=== PATIENT | male | born 1965 | race Two or more races ===

== ENCOUNTER 2021-01-26 14:11 | Inpatient (IN) | payer OTHER, MEDICAID ==
[~2021-01-26] VITALS: Ht 170.2 cm; Wt 86.1 kg
[2021-01-26 15:37] LABS: Basophils # (auto) 0 10 ^3/uL (0-0.2); Basophils % (auto) 0.2 % (0.0-2.0); Eosinophils # (auto) 0 10 ^3/uL (0-0.8); Eosinophils % (auto) 0.3 % (0.0-7.0); Lymphocytes # (auto) 0.7 10 ^3/uL (0.4-5.4); Lymphocytes % (auto) 5.9 % (10.0-50.0); Mean Corpuscular Hemoglobin 29.4 pg (28.0-32.0); Mean Corpuscular Hgb Conc. 32.6 g/dL (32.0-36.0); Mean Corpuscular Volume 90.3 fL (80.0-100.0); Monocytes # (auto) 0.5 10 ^3/uL (0-1.3); Monocytes % (auto) 3.9 % (0.0-12.0); Neutrophils # (auto) 11.2 10 ^3/uL (1.6-8.6); Neutrophils % (auto) 89.7 % (37.0-80.0); Nucleated Red Blood Cells % 0.1 %; Red Blood Cells 5.43 10^6/uL (4.5-5.90); Red Cell Distribution Width 13.7 % (11.8-14.3); White Blood Cell 12.5 10^3/uL (4.4-10.8)
[2021-01-26 15:58] LABS: Albumin 2.2 g/dL (3.4-5.0); Calcium 8.4 mg/dL (8.5-10.1); Magnesium 2.6 mg/dL (1.6-2.6); Potassium 3.5 mmol/L (3.5-5.1)
[2021-01-26 16:01] LABS: BUN/Creatinine Ratio 17.5; Bilirubin, Total 0.7 mg/dL (0.2-1.0); Total Protein 8.2 g/dL (6.4-8.2)
[2021-01-26] MEDS ORDERED: NITROGLYCERIN 0.4 MG SL TAB SL PRN ×2 (18:00→19:30)
[2021-01-26] MEDS ORDERED: AZITHROMYCIN 250 MG TAB PO ONE (18:00)
[2021-01-26] MEDS ORDERED: cefTRIAXone 1GM/50ML D5W 50 ML IV ONE (18:00)
[2021-01-26] MEDS ORDERED: MORPHINE SULFATE INJECTION 2 MG/ML SYRG IV PRN ×3 (18:00→19:30)
[2021-01-26] MEDS ORDERED: REMDESIVIR PER PHARMACY 0 ML IV SCH (19:30)
[2021-01-26] MEDS ORDERED: DOCUSATE SOD 100 MG CAP PO PRN (19:30)
[2021-01-26] MEDS ORDERED: METOCLOPRAMIDE HCL 5MG/ml INJ 2ml VIAL IV PRN (19:30)
[2021-01-26] MEDS ORDERED: FAMOTIDINE (10MG/ML) 2ML VL IV ONE (19:30)
[2021-01-26] MEDS ORDERED: LORazepam 0.5 MG TAB PO PRN (19:30)
[2021-01-26] MEDS ORDERED: ALUM & MAG HYDROX-SIMETH LIQ(MAALOX) 30 ML PO PRN (19:30)
[2021-01-26] MEDS ORDERED: HYDROcodone-ACET 5/325MG TAB PO PRN (19:30)
[2021-01-26] MEDS ORDERED: ALBUMIN 25% 100 ML IV ONE (19:30)
[2021-01-26 21:00] VITALS: BP 121/62
[2021-01-26 22:00] VITALS: BP 121/62
[2021-01-26] MEDS: FAMOTIDINE (10MG/ML) 2ML VL IV SCH (22:19)
[2021-01-26] MEDS: POTASSIUM CHL 20 Meq TABLET PO SCH (22:19)
[2021-01-26] MEDS: ENOXAPARIN SOD 40 MG/0.4 ML SYRINGE SC SCH (22:20)
[2021-01-26] MEDS: ATORVASTATIN 20 MG TAB PO SCH (22:20)
[2021-01-26] MEDS: DOXYCYCLINE 100MG/250ML 250 ML IV SCH (23:24)
[2021-01-27 00:33] LABS: Basophils # (auto) 0.1 10 ^3/uL (0-0.2); Basophils % (auto) 0.6 % (0.0-2.0); Eosinophils # (auto) 0 10 ^3/uL (0-0.8); Eosinophils % (auto) 0.3 % (0.0-7.0); Hematocrit 40.6 % (41.0-53.0); Hemoglobin 13.8 g/dL (13.5-17.5); Lymphocytes # (auto) 0.9 10 ^3/uL (0.4-5.4); Mean Corpuscular Hemoglobin 30.4 pg (28.0-32.0); Mean Corpuscular Hgb Conc. 34.1 g/dL (32.0-36.0); Mean Corpuscular Volume 89.2 fL (80.0-100.0); Monocytes # (auto) 0.4 10 ^3/uL (0-1.3); Monocytes % (auto) 3.3 % (0.0-12.0); Neutrophils # (auto) 9.3 10 ^3/uL (1.6-8.6); Neutrophils % (auto) 87.8 % (37.0-80.0); Nucleated Red Blood Cells % 0.1 %; Red Blood Cells 4.56 10^6/uL (4.5-5.90); Red Cell Distribution Width 13.5 % (11.8-14.3); White Blood Cell 10.7 10^3/uL (4.4-10.8)
[2021-01-27 00:55] LABS: Alanine Aminotransferase 42 U/L (16-61); Albumin 2.5 g/dL (3.4-5.0); Anion Gap 12 (5-15); Aspartate Aminotransferase 42 U/L (15-37); BUN/Creatinine Ratio 28.3; Blood Urea Nitrogen 15 mg/dL (7-18); Calcium 8.2 mg/dL (8.5-10.1); Carbon Dioxide 23 mmol/L (21-32); Chloride 106 mmol/L (98-107); Cholesterol 136 mg/dL (< 200); GFR African American 207 mL/min; GFR Non-African American 171 mL/min; Glucose 96 mg/dL (74-106); Magnesium 2.5 mg/dL (1.6-2.6); Potassium 3.5 mmol/L (3.5-5.1); Sodium 141 mmol/L (136-145)
[2021-01-27 01:03] LABS: Alkaline Phosphatase 57 U/L (45-117); Bilirubin, Total 0.7 mg/dL (0.2-1.0); HDL Cholesterol 28 mg/dL (40-59); LDL Cholesterol 88 mg/dL (< 100); Total Protein 7.3 g/dL (6.4-8.2); Triglycerides 125 mg/dL (< 150)
[2021-01-27 01:09] LABS: CRP High Sensitivity > 19.0 mg/dL (< 0.3)
[2021-01-27 01:11] LABS: Thyroid Stimulating Hormone 0.65 uIU/mL (0.358-3.74)
[2021-01-27] MEDS ORDERED: ASCO500T11 PO (02:51)
[2021-01-27] MEDS ORDERED: MULT1CHW PO (02:51)
[2021-01-27] MEDS ORDERED: ZINC220C8 PO (02:51)
[2021-01-27] MEDS: ALBUMIN 25% 100 ML IV SCH ×3 (04:07→19:27)
[2021-01-27 05:00] VITALS: BP 129/71
[2021-01-27] MEDS: FUROSEMIDE 20 MG/2 ML VIAL IV SCH ×2 (05:39→18:23)
[2021-01-27 06:46] LABS: Basophils # (auto) 0 10 ^3/uL (0-0.2); Basophils % (auto) 0.3 % (0.0-2.0); Eosinophils # (auto) 0.1 10 ^3/uL (0-0.8); Eosinophils % (auto) 0.8 % (0.0-7.0); Hematocrit 41.1 % (41.0-53.0); Hemoglobin 14.1 g/dL (13.5-17.5); Lymphocytes # (auto) 0.8 10 ^3/uL (0.4-5.4); Lymphocytes % (auto) 7.3 % (10.0-50.0); Mean Corpuscular Hemoglobin 30.5 pg (28.0-32.0); Mean Corpuscular Hgb Conc. 34.2 g/dL (32.0-36.0); Mean Corpuscular Volume 89.2 fL (80.0-100.0); Monocytes # (auto) 0.3 10 ^3/uL (0-1.3); Monocytes % (auto) 3.1 % (0.0-12.0); Neutrophils # (auto) 9.3 10 ^3/uL (1.6-8.6); Neutrophils % (auto) 88.5 % (37.0-80.0); Nucleated Red Blood Cells % 0.1 %; Red Blood Cells 4.61 10^6/uL (4.5-5.90); Red Cell Distribution Width 13.5 % (11.8-14.3); White Blood Cell 10.5 10^3/uL (4.4-10.8)
[2021-01-27 07:01] LABS: INR 1.1 (0.9-1.15)
[2021-01-27 07:06] LABS: Albumin 2.8 g/dL (3.4-5.0); Calcium 8.6 mg/dL (8.5-10.1); Magnesium 3.4 mg/dL (1.6-2.6); Potassium 3.7 mmol/L (3.5-5.1); Uric Acid 3.9 mg/dL (3.5-7.2)
[2021-01-27 07:11] LABS: Bilirubin, Total 0.8 mg/dL (0.2-1.0); Phosphorus 2.5 mg/dL (2.5-4.90); Total Protein 7.8 g/dL (6.4-8.2)
[2021-01-27 07:54] LABS: Urine Bacteria NONE SEEN /hpf (None Seen); Urine Blood Negative /uL (Negative); Urine Mucus FEW (None Seen); Urine Specific Gravity 1.033 (1.001-1.035); Urine WBC 1 /hpf (0 - 3)
[2021-01-27 07:57] LABS: Amphetamine Screen, Urine NEGATIVE (NEGATIVE); Barbiturate Scree,Urine NEGATIVE (NEGATIVE); Benzodiazephine Screen, Urine NEGATIVE (NEGATIVE); Cannabinoid Screen, Urine NEGATIVE (NEGATIVE); Cocaine Screen, Urine NEGATIVE (NEGATIVE); Opiate Scree,Urine NEGATIVE (NEGATIVE); Phencyclidine Screen, Urine NEGATIVE (NEGATIVE)
[2021-01-27] MEDS: DexAMETHasone SOD PHOS 10MG/1ML VIAL INJ IV SCH (08:26)
[2021-01-27] MEDS: FAMOTIDINE (10MG/ML) 2ML VL IV SCH ×2 (08:26→21:39)
[2021-01-27] MEDS: CHOLECALCIFEROL (VITD3) 2,000 UNIT CAP/TAB PO SCH (08:27)
[2021-01-27] MEDS: DOXYCYCLINE 100MG/250ML 250 ML IV SCH ×2 (08:27→21:39)
[2021-01-27] MEDS: POTASSIUM CHL 20 Meq TABLET PO SCH ×2 (08:27→21:39)
[2021-01-27] MEDS: ASCORBIC ACID 1,000 MG TAB PO SCH (08:27)
[2021-01-27] MEDS: ASPirin 81 mg TAB PO SCH (08:27)
[2021-01-27] MEDS: IVERMECTIN 3 MG TAB PO SCH (08:27)
[2021-01-27] MEDS: ENOXAPARIN SOD 40 MG/0.4 ML SYRINGE SC SCH ×2 (08:28→21:40)
[2021-01-27] MEDS: ZINC SULFATE 220mg CAP or TAB PO SCH (08:36)
[2021-01-27 09:00] VITALS: BP 131/67
[2021-01-27] MEDS ORDERED: REMDESIVIR 200 MG in NS 210ml LOADING DOSE ADULT IV ONE (09:00)
[2021-01-27] MEDS: BUDESONIDE (INHALATION) 180 MCG IH IN SCH ×2 (10:00→23:07)
[2021-01-27] MEDS ORDERED: ACETAMINOPHEN 325 MG TAB PO PRN (10:30)
[2021-01-27 11:42] LABS: BUN/Creatinine Ratio 21.4
[2021-01-27 13:00] VITALS: BP 122/62
[2021-01-27 17:00] VITALS: BP 133/69
[2021-01-27] MEDS: ATORVASTATIN 20 MG TAB PO SCH (21:39)
[2021-01-27 22:00] VITALS: BP 124/81
[2021-01-27] MEDS ORDERED: TOCILIZUMAB 400 MG in SODIUM CHL 0.9% 80 ML IV SCH (22:00)
[2021-01-27] MEDS: ALBUTEROL SULF HFA 90MCG INH 200DOSE IN PRN (23:07)
[2021-01-28 05:00] VITALS: BP 121/81
[2021-01-28] MEDS: FUROSEMIDE 20 MG/2 ML VIAL IV SCH (05:48)
[2021-01-28] MEDS: ALBUTEROL SULF HFA 90MCG INH 200DOSE IN PRN ×2 (06:13→20:18)
[2021-01-28] MEDS: BUDESONIDE (INHALATION) 180 MCG IH IN SCH ×2 (06:13→19:07)
[2021-01-28 06:56] LABS: Basophils # (auto) 0 10 ^3/uL (0-0.2); Basophils % (auto) 0.1 % (0.0-2.0); Eosinophils # (auto) 0 10 ^3/uL (0-0.8); Eosinophils % (auto) 0.1 % (0.0-7.0); Hematocrit 42.5 % (41.0-53.0); Hemoglobin 14.4 g/dL (13.5-17.5); Lymphocytes # (auto) 0.9 10 ^3/uL (0.4-5.4); Lymphocytes % (auto) 5.6 % (10.0-50.0); Mean Corpuscular Hemoglobin 30.1 pg (28.0-32.0); Mean Corpuscular Hgb Conc. 33.9 g/dL (32.0-36.0); Mean Corpuscular Volume 88.7 fL (80.0-100.0); Monocytes # (auto) 0.5 10 ^3/uL (0-1.3); Monocytes % (auto) 3.3 % (0.0-12.0); Neutrophils # (auto) 14.6 10 ^3/uL (1.6-8.6); Neutrophils % (auto) 90.9 % (37.0-80.0); Nucleated Red Blood Cells % 0.1 %; Red Blood Cells 4.79 10^6/uL (4.5-5.90); Red Cell Distribution Width 13.3 % (11.8-14.3)
[2021-01-28 06:59] LABS: INR 1.13 (0.9-1.15); Partial Thromboplastin Time 33.6 sec (23.6-33.0)
[2021-01-28 07:17] LABS: Albumin 3.3 g/dL (3.4-5.0); Bilirubin, Total 0.7 mg/dL (0.2-1.0); Calcium 9.1 mg/dL (8.5-10.1); Magnesium 2.4 mg/dL (1.6-2.6); Phosphorus 2.8 mg/dL (2.5-4.90); Total Protein 7.4 g/dL (6.4-8.2)
[2021-01-28 08:37] VITALS: BP 131/66
[2021-01-28] MEDS: DOXYCYCLINE 100MG/250ML 250 ML IV SCH (09:13)
[2021-01-28] MEDS: FAMOTIDINE (10MG/ML) 2ML VL IV SCH ×2 (09:13→21:39)
[2021-01-28] MEDS: ZINC SULFATE 220mg CAP or TAB PO SCH (09:13)
[2021-01-28] MEDS: ASPirin 81 mg TAB PO SCH (09:13)
[2021-01-28] MEDS: DexAMETHasone SOD PHOS 10MG/1ML VIAL INJ IV SCH (09:13)
[2021-01-28] MEDS: CHOLECALCIFEROL (VITD3) 2,000 UNIT CAP/TAB PO SCH (09:14)
[2021-01-28] MEDS: ENOXAPARIN SOD 40 MG/0.4 ML SYRINGE SC SCH ×2 (09:14→21:39)
[2021-01-28] MEDS: POTASSIUM CHL 20 Meq TABLET PO SCH (09:14)
[2021-01-28] MEDS: ASCORBIC ACID 1,000 MG TAB PO SCH (09:14)
[2021-01-28] MEDS: IVERMECTIN 3 MG TAB PO SCH (09:14)
[2021-01-28] MEDS: AZITHROMYCIN 500MG/ 250ML 250 ML IV SCH (11:47)
[2021-01-28 13:00] VITALS: BP 128/69
[2021-01-28] MEDS: ERGOCALCIFEROL 50,000 UNIT(1.25MG) CAP PO SCH (13:36)
[2021-01-28] MEDS: REMDESIVIR 100mg 100 MG in SODIUM CHL 0.9% 230 ML IV SCH (14:47)
[2021-01-28 17:00] VITALS: BP 132/71
[2021-01-28 20:55] VITALS: BP 140/70
[2021-01-28] MEDS: ATORVASTATIN 20 MG TAB PO SCH (21:39)
[2021-01-29] VITALS (32 sets, daily range): BP systolic 102–173; BP diastolic 55–88
[2021-01-29] MEDS: ALBUTEROL SULF HFA 90MCG INH 200DOSE IN PRN ×3 (06:54→19:18)
[2021-01-29] MEDS: BUDESONIDE (INHALATION) 180 MCG IH IN SCH ×2 (06:54→19:17)
[2021-01-29] MEDS: ASCORBIC ACID 1,000 MG TAB PO SCH (10:00)
[2021-01-29] MEDS: CHOLECALCIFEROL (VITD3) 2,000 UNIT CAP/TAB PO SCH (10:00)
[2021-01-29] MEDS: ASPirin 81 mg TAB PO SCH (10:00)
[2021-01-29] MEDS: POTASSIUM CHL 20 Meq TABLET PO SCH (10:00)
[2021-01-29] MEDS: IVERMECTIN 3 MG TAB PO SCH (10:00)
[2021-01-29] MEDS: ZINC SULFATE 220mg CAP or TAB PO SCH (10:00)
[2021-01-29] MEDS ORDERED: DexAMETHasone SOD PHOS 10MG/1ML VIAL INJ IM ONE (10:30)
[2021-01-29] MEDS ORDERED: fentaNYL Drip 2500mCg/250mlNS 0 ML IV ONE (10:34)
[2021-01-29] MEDS ORDERED: MIDAZOLAM DRIP 50 mg/50mL 0 ML IV ONE (10:35)
[2021-01-29] MEDS: cefTRIAXone 1GM/50ML D5W 50 ML IV SCH (11:59)
[2021-01-29] MEDS: FAMOTIDINE (10MG/ML) 2ML VL IV SCH ×2 (11:59→23:12)
[2021-01-29] MEDS: ENOXAPARIN SOD 40 MG/0.4 ML SYRINGE SC SCH ×2 (12:00→23:12)
[2021-01-29] MEDS: FUROSEMIDE 20 MG/2 ML VIAL IV SCH (12:00)
[2021-01-29] MEDS ORDERED: DexAMETHasone SOD PHOS 10MG/1ML VIAL INJ IV ONE (12:30)
[2021-01-29] MEDS: AZITHROMYCIN 500MG/ 250ML 250 ML IV SCH (13:15)
[2021-01-29] MEDS: REMDESIVIR 100mg 100 MG in SODIUM CHL 0.9% 230 ML IV SCH (15:02)
[2021-01-29 15:51] LABS: Albumin 3.2 g/dL (3.4-5.0); Calcium 8.9 mg/dL (8.5-10.1); Potassium 3.8 mmol/L (3.5-5.1)
[2021-01-29 15:54] LABS: BUN/Creatinine Ratio 32.8; Bilirubin, Total 0.6 mg/dL (0.2-1.0); Total Protein 7.7 g/dL (6.4-8.2)
[2021-01-29] MEDS: ATORVASTATIN 20 MG TAB PO SCH (22:00)
[2021-01-30] VITALS (47 sets, daily range): BP systolic 99–127; BP diastolic 46–73
[2021-01-30 04:20] LABS: Basophils # (auto) 0 10 ^3/uL (0-0.2); Basophils % (auto) 0.1 % (0.0-2.0); Eosinophils # (auto) 0 10 ^3/uL (0-0.8); Monocytes # (auto) 0.5 10 ^3/uL (0-1.3)
[2021-01-30 04:22] LABS: Hematocrit 42.6 % (41.0-53.0); Hemoglobin 14.5 g/dL (13.5-17.5); Lymphocytes % (auto) 7.7 % (10.0-50.0); Mean Corpuscular Volume 88.2 fL (80.0-100.0); Monocytes % (auto) 3.8 % (0.0-12.0); Neutrophils % (auto) 88.4 % (37.0-80.0); Red Blood Cells 4.82 10^6/uL (4.5-5.90); Red Cell Distribution Width 13.4 % (11.8-14.3); White Blood Cell 13.5 10^3/uL (4.4-10.8)
[2021-01-30 04:53] LABS: Albumin 2.8 g/dL (3.4-5.0); Calcium 8.4 mg/dL (8.5-10.1); Potassium 3.9 mmol/L (3.5-5.1)
[2021-01-30 05:01] LABS: BUN/Creatinine Ratio 32.9; Bilirubin, Total 0.5 mg/dL (0.2-1.0); CRP High Sensitivity 10.3 mg/dL (< 0.3); Total Protein 7.6 g/dL (6.4-8.2)
[2021-01-30] MEDS: BUDESONIDE (INHALATION) 180 MCG IH IN SCH ×2 (07:29→18:12)
[2021-01-30] MEDS: cefTRIAXone 1GM/50ML D5W 50 ML IV SCH (09:00)
[2021-01-30] MEDS: FUROSEMIDE 20 MG/2 ML VIAL IV SCH (10:34)
[2021-01-30] MEDS: FAMOTIDINE (10MG/ML) 2ML VL IV SCH ×2 (10:34→20:38)
[2021-01-30] MEDS: DexAMETHasone SOD PHOS 10MG/1ML VIAL INJ IV SCH (10:34)
[2021-01-30] MEDS: AZITHROMYCIN 500MG/ 250ML 250 ML IV SCH (10:35)
[2021-01-30] MEDS: ZINC SULFATE 220mg CAP or TAB PO SCH (10:35)
[2021-01-30] MEDS: ASPirin 81 mg TAB PO SCH (10:35)
[2021-01-30] MEDS: POTASSIUM CHL 20 Meq TABLET PO SCH (10:39)
[2021-01-30] MEDS: CHOLECALCIFEROL (VITD3) 2,000 UNIT CAP/TAB PO SCH (10:42)
[2021-01-30] MEDS: ASCORBIC ACID 1,000 MG TAB PO SCH (10:42)
[2021-01-30] MEDS: IVERMECTIN 3 MG TAB PO SCH (10:42)
[2021-01-30] MEDS: ENOXAPARIN SOD 40 MG/0.4 ML SYRINGE SC SCH ×2 (10:43→20:38)
[2021-01-30] MEDS: D5W 5% 1,000 ML IV SCH (12:53)
[2021-01-30] MEDS: REMDESIVIR 100mg 100 MG in SODIUM CHL 0.9% 230 ML IV SCH (15:00)
[2021-01-30] MEDS: ALBUTEROL SULF HFA 90MCG INH 200DOSE IN PRN (18:12)
[2021-01-30] MEDS: ATORVASTATIN 20 MG TAB PO SCH (20:38)
[2021-01-31] VITALS (27 sets, daily range): BP systolic 88–114; BP diastolic 43–60
[2021-01-31 04:16] LABS: Basophils # (auto) 0.1 10 ^3/uL (0-0.2); Basophils % (auto) 0.4 % (0.0-2.0); Eosinophils # (auto) 0 10 ^3/uL (0-0.8); Eosinophils % (auto) 0.2 % (0.0-7.0); Mean Corpuscular Hemoglobin 29.5 pg (28.0-32.0); Monocytes # (auto) 0.6 10 ^3/uL (0-1.3)
[2021-01-31 04:20] LABS: Hematocrit 44.1 % (41.0-53.0); Hemoglobin 14.7 g/dL (13.5-17.5); Lymphocytes # (auto) 1.5 10 ^3/uL (0.4-5.4); Lymphocytes % (auto) 9.7 % (10.0-50.0); Mean Corpuscular Hgb Conc. 33.2 g/dL (32.0-36.0); Mean Corpuscular Volume 88.9 fL (80.0-100.0); Monocytes % (auto) 3.9 % (0.0-12.0); Neutrophils # (auto) 13.6 10 ^3/uL (1.6-8.6); Neutrophils % (auto) 85.8 % (37.0-80.0); Red Blood Cells 4.97 10^6/uL (4.5-5.90); Red Cell Distribution Width 13.3 % (11.8-14.3); White Blood Cell 15.8 10^3/uL (4.4-10.8)
[2021-01-31 04:37] LABS: Albumin 2.8 g/dL (3.4-5.0); Calcium 8.8 mg/dL (8.5-10.1); Potassium 4.8 mmol/L (3.5-5.1)
[2021-01-31 04:40] LABS: BUN/Creatinine Ratio 36.8
[2021-01-31 04:48] LABS: Bilirubin, Total 0.5 mg/dL (0.2-1.0); Total Protein 6.7 g/dL (6.4-8.2)
[2021-01-31] MEDS: ALBUTEROL SULF HFA 90MCG INH 200DOSE IN PRN ×2 (06:13→22:18)
[2021-01-31] MEDS: BUDESONIDE (INHALATION) 180 MCG IH IN SCH ×2 (06:13→22:18)
[2021-01-31] MEDS: D5W 5% 1,000 ML IV SCH (09:32)
[2021-01-31] MEDS: cefTRIAXone 1GM/50ML D5W 50 ML IV SCH (09:32)
[2021-01-31] MEDS: AZITHROMYCIN 500MG/ 250ML 250 ML IV SCH (09:33)
[2021-01-31] MEDS: FUROSEMIDE 20 MG/2 ML VIAL IV SCH (09:33)
[2021-01-31] MEDS: DexAMETHasone SOD PHOS 10MG/1ML VIAL INJ IV SCH (09:33)
[2021-01-31] MEDS: FAMOTIDINE (10MG/ML) 2ML VL IV SCH ×2 (09:33→21:10)
[2021-01-31] MEDS: ASPirin 81 mg TAB PO SCH (09:33)
[2021-01-31] MEDS: POTASSIUM CHL 20 Meq TABLET PO SCH (09:34)
[2021-01-31] MEDS: CHOLECALCIFEROL (VITD3) 2,000 UNIT CAP/TAB PO SCH (09:34)
[2021-01-31] MEDS: IVERMECTIN 3 MG TAB PO SCH (09:34)
[2021-01-31] MEDS: ENOXAPARIN SOD 40 MG/0.4 ML SYRINGE SC SCH ×2 (09:34→21:16)
[2021-01-31] MEDS: ASCORBIC ACID 1,000 MG TAB PO SCH (09:34)
[2021-01-31] MEDS: ZINC SULFATE 220mg CAP or TAB PO SCH (09:34)
[2021-01-31] MEDS: REMDESIVIR 100mg 100 MG in SODIUM CHL 0.9% 230 ML IV SCH (15:00)
[2021-01-31] MEDS: ATORVASTATIN 20 MG TAB PO SCH (21:10)
[2021-02-01] VITALS (29 sets, daily range): BP systolic 83–117; BP diastolic 45–68
[2021-02-01 04:37] LABS: Hemoglobin 14.8 g/dL (13.5-17.5); Red Cell Distribution Width 13.7 % (11.8-14.3)
[2021-02-01 04:41] LABS: Hematocrit 44.9 % (41.0-53.0); Mean Corpuscular Hemoglobin 29.4 pg (28.0-32.0); Mean Corpuscular Hgb Conc. 32.9 g/dL (32.0-36.0); Mean Corpuscular Volume 89.5 fL (80.0-100.0); Red Blood Cells 5.02 10^6/uL (4.5-5.90); White Blood Cell 18.2 10^3/uL (4.4-10.8)
[2021-02-01 04:50] LABS: BUN/Creatinine Ratio 41.4; Basophils % (manual) 0 (0.0-2.0); Blast Cells 0; Calcium 8.6 mg/dL (8.5-10.1); Eosinophils % (manual) 0 (0-7); Metamyelocytes % 0; Myelocytes % 0; Potassium 4.8 mmol/L (3.5-5.1); Promyelocytes % 0; Reactive Lymphocytes 0
[2021-02-01] MEDS: ALBUTEROL SULF HFA 90MCG INH 200DOSE IN PRN ×2 (05:56→20:59)
[2021-02-01] MEDS: BUDESONIDE (INHALATION) 180 MCG IH IN SCH ×2 (05:56→20:59)
[2021-02-01 06:06] LABS: Band Neutrophils % (manual) 8; Lymphocytes % (manual) 11 (10.0-50.0); Monocytes % (manual) 4 (0-12)
[2021-02-01] MEDS: CHOLECALCIFEROL (VITD3) 2,000 UNIT CAP/TAB PO SCH (10:00)
[2021-02-01] MEDS: cefTRIAXone 1GM/50ML D5W 50 ML IV SCH (10:06)
[2021-02-01] MEDS: DexAMETHasone SOD PHOS 10MG/1ML VIAL INJ IV SCH (10:07)
[2021-02-01] MEDS: FAMOTIDINE (10MG/ML) 2ML VL IV SCH ×2 (10:07→21:10)
[2021-02-01] MEDS: ASPirin 81 mg TAB PO SCH (10:07)
[2021-02-01] MEDS: FUROSEMIDE 20 MG/2 ML VIAL IV SCH (10:07)
[2021-02-01] MEDS: AZITHROMYCIN 500MG/ 250ML 250 ML IV SCH (10:07)
[2021-02-01] MEDS: ASCORBIC ACID 1,000 MG TAB PO SCH (10:08)
[2021-02-01] MEDS: ZINC SULFATE 220mg CAP or TAB PO SCH (10:08)
[2021-02-01] MEDS: ENOXAPARIN SOD 40 MG/0.4 ML SYRINGE SC SCH ×2 (10:08→21:10)
[2021-02-01] MEDS: POTASSIUM CHL 20 Meq TABLET PO SCH (10:08)
[2021-02-01] MEDS: D5W 5% 1,000 ML IV SCH (10:09)
[2021-02-01] MEDS: ATORVASTATIN 20 MG TAB PO SCH (21:10)
[2021-02-02] VITALS (14 sets, daily range): BP systolic 95–111; BP diastolic 47–63
[2021-02-02 04:36] LABS: Basophils # (auto) 0.1 10 ^3/uL (0-0.2); Eosinophils # (auto) 0 10 ^3/uL (0-0.8); Eosinophils % (auto) 0.1 % (0.0-7.0)
[2021-02-02 04:39] LABS: Basophils % (auto) 0.4 % (0.0-2.0); Hematocrit 45.1 % (41.0-53.0); Hemoglobin 15.1 g/dL (13.5-17.5); Lymphocytes # (auto) 1.7 10 ^3/uL (0.4-5.4); Lymphocytes % (auto) 8.3 % (10.0-50.0); Mean Corpuscular Hemoglobin 29.6 pg (28.0-32.0); Mean Corpuscular Hgb Conc. 33.5 g/dL (32.0-36.0); Mean Corpuscular Volume 88.3 fL (80.0-100.0); Monocytes # (auto) 0.9 10 ^3/uL (0-1.3); Monocytes % (auto) 4.3 % (0.0-12.0); Neutrophils % (auto) 86.9 % (37.0-80.0); Red Blood Cells 5.11 10^6/uL (4.5-5.90); Red Cell Distribution Width 13.3 % (11.8-14.3); White Blood Cell 20.8 10^3/uL (4.4-10.8)
[2021-02-02 05:00] LABS: BUN/Creatinine Ratio 31.9; Calcium 8.6 mg/dL (8.5-10.1); Potassium 4.8 mmol/L (3.5-5.1)
[2021-02-02] MEDS: D5W 5% 1,000 ML IV SCH ×2 (06:12→20:30)
[2021-02-02] MEDS: BUDESONIDE (INHALATION) 180 MCG IH IN SCH ×2 (08:53→21:10)
[2021-02-02] MEDS: ALBUTEROL SULF HFA 90MCG INH 200DOSE IN PRN (08:54)
[2021-02-02] MEDS: cefTRIAXone 1GM/50ML D5W 50 ML IV SCH (09:06)
[2021-02-02] MEDS: FAMOTIDINE (10MG/ML) 2ML VL IV SCH ×2 (10:04→20:53)
[2021-02-02] MEDS: ENOXAPARIN SOD 40 MG/0.4 ML SYRINGE SC SCH ×2 (10:04→20:54)
[2021-02-02] MEDS: FUROSEMIDE 20 MG/2 ML VIAL IV SCH (10:04)
[2021-02-02] MEDS: DexAMETHasone SOD PHOS 10MG/1ML VIAL INJ IV SCH (10:04)
[2021-02-02] MEDS: ASPirin 81 mg TAB PO SCH (10:05)
[2021-02-02] MEDS: CHOLECALCIFEROL (VITD3) 2,000 UNIT CAP/TAB PO SCH (10:05)
[2021-02-02] MEDS: ZINC SULFATE 220mg CAP or TAB PO SCH (10:05)
[2021-02-02] MEDS: POTASSIUM CHL 20 Meq TABLET PO SCH (10:05)
[2021-02-02] MEDS: AZITHROMYCIN 500MG/ 250ML 250 ML IV SCH (10:06)
[2021-02-02] MEDS: ASCORBIC ACID 1,000 MG TAB PO SCH (10:10)
[2021-02-02] MEDS: ATORVASTATIN 20 MG TAB PO SCH (20:54)
[2021-02-03] MEDS: ALBUTEROL SULF HFA 90MCG INH 200DOSE IN PRN ×3 (01:28→22:19)
[2021-02-03 05:00] VITALS: BP 107/73
[2021-02-03 07:55] LABS: Potassium 4.8 mmol/L (3.5-5.1)
[2021-02-03 08:01] LABS: Albumin 2.7 g/dL (3.4-5.0); BUN/Creatinine Ratio 33.3; Bilirubin, Total 0.5 mg/dL (0.2-1.0); Calcium 8.4 mg/dL (8.5-10.1); Total Protein 6.7 g/dL (6.4-8.2)
[2021-02-03 09:00] VITALS: BP 110/62
[2021-02-03] MEDS: cefTRIAXone 1GM/50ML D5W 50 ML IV SCH (09:31)
[2021-02-03] MEDS: BUDESONIDE (INHALATION) 180 MCG IH IN SCH ×2 (09:35→22:18)
[2021-02-03] MEDS: DexAMETHasone SOD PHOS 10MG/1ML VIAL INJ IV SCH (10:16)
[2021-02-03] MEDS: ASPirin 81 mg TAB PO SCH (10:17)
[2021-02-03] MEDS: ZINC SULFATE 220mg CAP or TAB PO SCH (10:17)
[2021-02-03] MEDS: FUROSEMIDE 20 MG/2 ML VIAL IV SCH (10:17)
[2021-02-03] MEDS: FAMOTIDINE (10MG/ML) 2ML VL IV SCH ×2 (10:17→21:22)
[2021-02-03] MEDS: ENOXAPARIN SOD 40 MG/0.4 ML SYRINGE SC SCH ×2 (10:18→21:22)
[2021-02-03] MEDS: ASCORBIC ACID 1,000 MG TAB PO SCH (10:18)
[2021-02-03] MEDS: POTASSIUM CHL 20 Meq TABLET PO SCH (10:18)
[2021-02-03] MEDS: CHOLECALCIFEROL (VITD3) 2,000 UNIT CAP/TAB PO SCH (10:18)
[2021-02-03 13:18] VITALS: BP 102/59
[2021-02-03 16:59] VITALS: BP 100/59
[2021-02-03] MEDS: D5W 5% 1,000 ML IV SCH (17:54)
[2021-02-03] MEDS: ATORVASTATIN 20 MG TAB PO SCH (21:22)
[2021-02-03 22:00] VITALS: BP 118/68
[2021-02-04 04:56] VITALS: BP 118/86
[2021-02-04] MEDS: BUDESONIDE (INHALATION) 180 MCG IH IN SCH ×2 (06:00→22:25)
[2021-02-04] MEDS: ALBUTEROL SULF HFA 90MCG INH 200DOSE IN PRN ×2 (06:00→23:44)
[2021-02-04 09:00] VITALS: BP 113/69
[2021-02-04] MEDS: cefTRIAXone 1GM/50ML D5W 50 ML IV SCH (09:00)
[2021-02-04] MEDS: ZINC SULFATE 220mg CAP or TAB PO SCH (10:00)
[2021-02-04] MEDS: CHOLECALCIFEROL (VITD3) 2,000 UNIT CAP/TAB PO SCH (10:00)
[2021-02-04] MEDS: ASCORBIC ACID 1,000 MG TAB PO SCH (10:00)
[2021-02-04] MEDS: FAMOTIDINE (10MG/ML) 2ML VL IV SCH ×2 (10:00→22:00)
[2021-02-04] MEDS: POTASSIUM CHL 20 Meq TABLET PO SCH (10:00)
[2021-02-04] MEDS: ENOXAPARIN SOD 40 MG/0.4 ML SYRINGE SC SCH ×2 (10:00→22:00)
[2021-02-04] MEDS: DexAMETHasone SOD PHOS 10MG/1ML VIAL INJ IV SCH (10:00)
[2021-02-04] MEDS: FUROSEMIDE 20 MG/2 ML VIAL IV SCH (10:00)
[2021-02-04] MEDS: ASPirin 81 mg TAB PO SCH (10:00)
[2021-02-04] MEDS: ERGOCALCIFEROL 50,000 UNIT(1.25MG) CAP PO SCH (12:00)
[2021-02-04] MEDS: D5W 5% 1,000 ML IV SCH (12:30)
[2021-02-04 12:39] VITALS: BP 116/69
[2021-02-04] MEDS ORDERED: METOCLOPRAMIDE HCL 5MG/ml INJ 2ml VIAL IV PRN (15:45)
[2021-02-04] MEDS: DOXYCYCLINE 100MG/250ML 250 ML IV SCH (16:00)
[2021-02-04 16:56] VITALS: BP 112/69
[2021-02-04 22:00] VITALS: BP 105/69
[2021-02-04] MEDS: DexAMETHasone SOD PHOS 4 MG/1ML SDV INJ IV SCH (22:00)
[2021-02-04] MEDS: ATORVASTATIN 20 MG TAB PO SCH (22:00)
[2021-02-05] MEDS: DOXYCYCLINE 100MG/250ML 250 ML IV SCH ×2 (04:16→15:45)
[2021-02-05 05:00] VITALS: BP 113/70
[2021-02-05] MEDS: BUDESONIDE (INHALATION) 180 MCG IH IN SCH ×2 (06:17→22:24)
[2021-02-05] MEDS: ALBUTEROL SULF HFA 90MCG INH 200DOSE IN PRN ×2 (06:17→23:31)
[2021-02-05 06:23] LABS: Basophils # (auto) 0 10 ^3/uL (0-0.2); Eosinophils # (auto) 0 10 ^3/uL (0-0.8); Mean Corpuscular Hgb Conc. 33.1 g/dL (32.0-36.0); Potassium 4.8 mmol/L (3.5-5.1); Red Cell Distribution Width 13.9 % (11.8-14.3)
[2021-02-05 06:29] LABS: BUN/Creatinine Ratio 35.9; Calcium 8.9 mg/dL (8.5-10.1)
[2021-02-05 06:30] LABS: Basophils % (auto) 0.2 % (0.0-2.0); Hematocrit 47.2 % (41.0-53.0); Hemoglobin 15.6 g/dL (13.5-17.5); Lymphocytes # (auto) 1.3 10 ^3/uL (0.4-5.4); Lymphocytes % (auto) 5.5 % (10.0-50.0); Mean Corpuscular Hemoglobin 29.8 pg (28.0-32.0); Mean Corpuscular Volume 90.1 fL (80.0-100.0); Monocytes % (auto) 4.1 % (0.0-12.0); Neutrophils % (auto) 90.2 % (37.0-80.0); Nucleated Red Blood Cells % 0.1 %; Red Blood Cells 5.24 10^6/uL (4.5-5.90); White Blood Cell 23.3 10^3/uL (4.4-10.8)
[2021-02-05 09:00] VITALS: BP 117/68
[2021-02-05] MEDS: ENOXAPARIN SOD 40 MG/0.4 ML SYRINGE SC SCH ×2 (10:00→21:26)
[2021-02-05] MEDS: FUROSEMIDE 20 MG/2 ML VIAL IV SCH (10:00)
[2021-02-05] MEDS: DexAMETHasone SOD PHOS 4 MG/1ML SDV INJ IV SCH ×2 (10:00→21:25)
[2021-02-05] MEDS: CHOLECALCIFEROL (VITD3) 2,000 UNIT CAP/TAB PO SCH (10:00)
[2021-02-05] MEDS: ASPirin 81 mg TAB PO SCH (10:00)
[2021-02-05] MEDS: ZINC SULFATE 220mg CAP or TAB PO SCH (10:00)
[2021-02-05] MEDS: ASCORBIC ACID 1,000 MG TAB PO SCH (10:00)
[2021-02-05] MEDS: FAMOTIDINE (10MG/ML) 2ML VL IV SCH ×2 (10:00→21:25)
[2021-02-05] MEDS: POTASSIUM CHL 20 Meq TABLET PO SCH (10:00)
[2021-02-05 12:33] VITALS: BP 110/69
[2021-02-05 16:32] VITALS: BP 111/68
[2021-02-05] MEDS: ATORVASTATIN 20 MG TAB PO SCH (21:25)
[2021-02-05 22:14] VITALS: BP 112/70
[2021-02-06] MEDS: DOXYCYCLINE 100MG/250ML 250 ML IV SCH ×2 (03:52→15:24)
[2021-02-06 05:33] VITALS: BP 109/64
[2021-02-06] MEDS: ALBUTEROL SULF HFA 90MCG INH 200DOSE IN PRN ×2 (06:04→18:25)
[2021-02-06] MEDS: BUDESONIDE (INHALATION) 180 MCG IH IN SCH ×2 (06:04→18:25)
[2021-02-06 07:07] LABS: Basophils # (auto) 0 10 ^3/uL (0-0.2); Basophils % (auto) 0.1 % (0.0-2.0); Eosinophils # (auto) 0 10 ^3/uL (0-0.8); Hematocrit 47.8 % (41.0-53.0); Hemoglobin 15.5 g/dL (13.5-17.5); Lymphocytes % (auto) 8.8 % (10.0-50.0); Mean Corpuscular Hemoglobin 29.5 pg (28.0-32.0); Mean Corpuscular Hgb Conc. 32.5 g/dL (32.0-36.0); Mean Corpuscular Volume 90.8 fL (80.0-100.0); Monocytes # (auto) 1.1 10 ^3/uL (0-1.3); Neutrophils # (auto) 19.7 10 ^3/uL (1.6-8.6); Neutrophils % (auto) 86.1 % (37.0-80.0); Red Blood Cells 5.26 10^6/uL (4.5-5.90); Red Cell Distribution Width 14.1 % (11.8-14.3); White Blood Cell 22.9 10^3/uL (4.4-10.8)
[2021-02-06 08:30] VITALS: BP 106/62
[2021-02-06] MEDS: ZINC SULFATE 220mg CAP or TAB PO SCH (09:59)
[2021-02-06] MEDS: FUROSEMIDE 20 MG/2 ML VIAL IV SCH (09:59)
[2021-02-06] MEDS: ASPirin 81 mg TAB PO SCH (09:59)
[2021-02-06] MEDS: FAMOTIDINE (10MG/ML) 2ML VL IV SCH ×2 (09:59→22:13)
[2021-02-06] MEDS: DexAMETHasone SOD PHOS 4 MG/1ML SDV INJ IV SCH ×2 (09:59→22:13)
[2021-02-06] MEDS: ENOXAPARIN SOD 40 MG/0.4 ML SYRINGE SC SCH ×2 (10:00→22:13)
[2021-02-06] MEDS: CHOLECALCIFEROL (VITD3) 2,000 UNIT CAP/TAB PO SCH (10:00)
[2021-02-06] MEDS: ASCORBIC ACID 1,000 MG TAB PO SCH (10:00)
[2021-02-06] MEDS: POTASSIUM CHL 20 Meq TABLET PO SCH (10:00)
[2021-02-06 13:00] VITALS: BP 110/66
[2021-02-06 16:43] VITALS: BP 106/71
[2021-02-06] MEDS: ATORVASTATIN 20 MG TAB PO SCH (22:13)
[2021-02-07] MEDS: DOXYCYCLINE 100MG/250ML 250 ML IV SCH ×2 (03:52→15:39)
[2021-02-07] MEDS: BUDESONIDE (INHALATION) 180 MCG IH IN SCH ×2 (05:49→21:49)
[2021-02-07] MEDS: ALBUTEROL SULF HFA 90MCG INH 200DOSE IN PRN ×2 (05:49→23:01)
[2021-02-07 05:57] VITALS: BP 115/64
[2021-02-07 07:36] LABS: Potassium 4.9 mmol/L (3.5-5.1)
[2021-02-07 07:55] LABS: Albumin 2.8 g/dL (3.4-5.0); BUN/Creatinine Ratio 34.1; Bilirubin, Total 0.6 mg/dL (0.2-1.0); CRP High Sensitivity 0.24 mg/dL (< 0.3); Calcium 8.5 mg/dL (8.5-10.1); Total Protein 6.3 g/dL (6.4-8.2)
[2021-02-07 09:00] VITALS: BP 90/57
[2021-02-07] MEDS: ASCORBIC ACID 1,000 MG TAB PO SCH (10:00)
[2021-02-07] MEDS: FUROSEMIDE 20 MG/2 ML VIAL IV SCH (10:00)
[2021-02-07] MEDS: DexAMETHasone SOD PHOS 4 MG/1ML SDV INJ IV SCH ×2 (11:20→22:44)
[2021-02-07] MEDS: FAMOTIDINE (10MG/ML) 2ML VL IV SCH ×2 (11:21→22:44)
[2021-02-07] MEDS: ZINC SULFATE 220mg CAP or TAB PO SCH (11:21)
[2021-02-07] MEDS: ASPirin 81 mg TAB PO SCH (11:21)
[2021-02-07] MEDS: CHOLECALCIFEROL (VITD3) 2,000 UNIT CAP/TAB PO SCH (11:22)
[2021-02-07] MEDS: ENOXAPARIN SOD 40 MG/0.4 ML SYRINGE SC SCH ×2 (11:22→22:44)
[2021-02-07] MEDS: POTASSIUM CHL 20 Meq TABLET PO SCH (11:22)
[2021-02-07 13:00] VITALS: BP 120/71
[2021-02-07 17:00] VITALS: BP 109/63
[2021-02-07 22:39] VITALS: BP 112/65
[2021-02-07] MEDS: ATORVASTATIN 20 MG TAB PO SCH (22:44)
[2021-02-08] MEDS: DOXYCYCLINE 100MG/250ML 250 ML IV SCH ×2 (03:46→15:01)
[2021-02-08 05:00] VITALS: BP 107/68
[2021-02-08] MEDS: BUDESONIDE (INHALATION) 180 MCG IH IN SCH ×2 (08:44→20:08)
[2021-02-08] MEDS: ALBUTEROL SULF HFA 90MCG INH 200DOSE IN PRN ×2 (08:44→20:08)
[2021-02-08 09:00] VITALS: BP 92/45
[2021-02-08] MEDS: FUROSEMIDE 20 MG/2 ML VIAL IV SCH (10:00)
[2021-02-08] MEDS: DexAMETHasone SOD PHOS 4 MG/1ML SDV INJ IV SCH ×2 (10:27→22:03)
[2021-02-08] MEDS: CHOLECALCIFEROL (VITD3) 2,000 UNIT CAP/TAB PO SCH (10:29)
[2021-02-08] MEDS: POTASSIUM CHL 20 Meq TABLET PO SCH (10:29)
[2021-02-08] MEDS: ENOXAPARIN SOD 40 MG/0.4 ML SYRINGE SC SCH ×2 (10:29→22:03)
[2021-02-08] MEDS: ASCORBIC ACID 1,000 MG TAB PO SCH (10:29)
[2021-02-08] MEDS: ASPirin 81 mg TAB PO SCH (10:29)
[2021-02-08] MEDS: ZINC SULFATE 220mg CAP or TAB PO SCH (10:29)
[2021-02-08] MEDS: FAMOTIDINE (10MG/ML) 2ML VL IV SCH ×2 (10:29→22:03)
[2021-02-08 13:00] VITALS: BP 122/73
[2021-02-08 16:57] VITALS: BP 111/73
[2021-02-08 22:00] VITALS: BP 115/68
[2021-02-08] MEDS: ATORVASTATIN 20 MG TAB PO SCH (22:03)
[2021-02-09] MEDS: DOXYCYCLINE 100MG/250ML 250 ML IV SCH ×2 (03:32→15:45)
[2021-02-09 05:00] VITALS: BP 127/81
[2021-02-09 06:59] LABS: Basophils # (auto) 0.1 10 ^3/uL (0-0.2); Basophils % (auto) 0.4 % (0.0-2.0); Eosinophils # (auto) 0 10 ^3/uL (0-0.8); Eosinophils % (auto) 0.1 % (0.0-7.0); Hematocrit 42.3 % (41.0-53.0); Hemoglobin 14.3 g/dL (13.5-17.5); Lymphocytes # (auto) 1.8 10 ^3/uL (0.4-5.4); Lymphocytes % (auto) 8.5 % (10.0-50.0); Mean Corpuscular Hemoglobin 30.2 pg (28.0-32.0); Mean Corpuscular Hgb Conc. 33.7 g/dL (32.0-36.0); Mean Corpuscular Volume 89.5 fL (80.0-100.0); Monocytes % (auto) 4.6 % (0.0-12.0); Neutrophils # (auto) 18.6 10 ^3/uL (1.6-8.6); Neutrophils % (auto) 86.4 % (37.0-80.0); Nucleated Red Blood Cells % 0.1 %; Red Blood Cells 4.72 10^6/uL (4.5-5.90); Red Cell Distribution Width 13.9 % (11.8-14.3); White Blood Cell 21.5 10^3/uL (4.4-10.8)
[2021-02-09 07:03] LABS: Calcium 8.7 mg/dL (8.5-10.1); Potassium 4.6 mmol/L (3.5-5.1)
[2021-02-09 07:07] LABS: BUN/Creatinine Ratio 30.9; Bilirubin, Total 0.6 mg/dL (0.2-1.0); Total Protein 6.1 g/dL (6.4-8.2)
[2021-02-09 09:00] VITALS: BP 119/66
[2021-02-09] MEDS: DexAMETHasone SOD PHOS 4 MG/1ML SDV INJ IV SCH ×2 (09:59→21:46)
[2021-02-09] MEDS: FAMOTIDINE (10MG/ML) 2ML VL IV SCH ×2 (10:00→21:46)
[2021-02-09] MEDS: POTASSIUM CHL 20 Meq TABLET PO SCH (10:00)
[2021-02-09] MEDS: FUROSEMIDE 20 MG/2 ML VIAL IV SCH (10:00)
[2021-02-09] MEDS: ASPirin 81 mg TAB PO SCH (10:00)
[2021-02-09] MEDS: ZINC SULFATE 220mg CAP or TAB PO SCH (10:00)
[2021-02-09] MEDS: ASCORBIC ACID 1,000 MG TAB PO SCH (10:00)
[2021-02-09] MEDS: CHOLECALCIFEROL (VITD3) 2,000 UNIT CAP/TAB PO SCH (10:01)
[2021-02-09] MEDS: ENOXAPARIN SOD 40 MG/0.4 ML SYRINGE SC SCH ×2 (10:01→21:46)
[2021-02-09 13:00] VITALS: BP 110/61
[2021-02-09] MEDS: FLUTICASONE PROP NASAL SPR 0.05 % (50MCG) 16GM EACHNOSTRI PRN (14:51)
[2021-02-09] MEDS: ALBUTEROL SULF HFA 90MCG INH 200DOSE IN PRN ×2 (15:27→23:18)
[2021-02-09] MEDS: BUDESONIDE (INHALATION) 180 MCG IH IN SCH ×2 (15:27→22:00)
[2021-02-09 17:00] VITALS: BP 122/71
[2021-02-09 22:00] VITALS: BP 119/66
[2021-02-10 00:18] VITALS: BP 123/68
[2021-02-10] MEDS: DOXYCYCLINE 100MG/250ML 250 ML IV SCH ×2 (03:36→15:30)
[2021-02-10 05:00] VITALS: BP 111/61
[2021-02-10] MEDS: ALBUTEROL SULF HFA 90MCG INH 200DOSE IN PRN ×2 (06:14→23:46)
[2021-02-10] MEDS: BUDESONIDE (INHALATION) 180 MCG IH IN SCH ×2 (06:14→19:10)
[2021-02-10 07:20] LABS: Albumin 2.7 g/dL (3.4-5.0); Calcium 8.7 mg/dL (8.5-10.1); Potassium 4.2 mmol/L (3.5-5.1)
[2021-02-10 07:26] LABS: BUN/Creatinine Ratio 30.6; Bilirubin, Total 0.4 mg/dL (0.2-1.0); Total Protein 5.8 g/dL (6.4-8.2)
[2021-02-10 08:42] VITALS: BP 115/60
[2021-02-10] MEDS: FUROSEMIDE 20 MG/2 ML VIAL IV SCH (10:29)
[2021-02-10] MEDS: FAMOTIDINE (10MG/ML) 2ML VL IV SCH ×2 (10:29→21:23)
[2021-02-10] MEDS: DexAMETHasone SOD PHOS 4 MG/1ML SDV INJ IV SCH ×2 (10:29→21:23)
[2021-02-10] MEDS: ASPirin 81 mg TAB PO SCH (10:30)
[2021-02-10] MEDS: ASCORBIC ACID 1,000 MG TAB PO SCH (10:30)
[2021-02-10] MEDS: POTASSIUM CHL 20 Meq TABLET PO SCH (10:30)
[2021-02-10] MEDS: ENOXAPARIN SOD 40 MG/0.4 ML SYRINGE SC SCH ×2 (10:30→21:24)
[2021-02-10] MEDS: CHOLECALCIFEROL (VITD3) 2,000 UNIT CAP/TAB PO SCH (10:30)
[2021-02-10] MEDS: ZINC SULFATE 220mg CAP or TAB PO SCH (10:30)
[2021-02-10] MEDS: FLUTICASONE PROP NASAL SPR 0.05 % (50MCG) 16GM EACHNOSTRI PRN (12:21)
[2021-02-10 13:00] VITALS: BP 121/63
[2021-02-10 17:00] VITALS: BP 132/68
[2021-02-10 22:32] VITALS: BP 121/64
[2021-02-11] MEDS: DOXYCYCLINE 100MG/250ML 250 ML IV SCH ×2 (03:29→15:24)
[2021-02-11 05:06] VITALS: BP 118/54
[2021-02-11 09:00] VITALS: BP 123/68
[2021-02-11] MEDS: BUDESONIDE (INHALATION) 180 MCG IH IN SCH ×2 (09:17→18:15)
[2021-02-11] MEDS: ALBUTEROL SULF HFA 90MCG INH 200DOSE IN PRN ×2 (09:17→20:26)
[2021-02-11] MEDS: DexAMETHasone SOD PHOS 4 MG/1ML SDV INJ IV SCH ×2 (10:12→22:26)
[2021-02-11] MEDS: ASPirin 81 mg TAB PO SCH (10:12)
[2021-02-11] MEDS: ZINC SULFATE 220mg CAP or TAB PO SCH (10:12)
[2021-02-11] MEDS: FUROSEMIDE 20 MG/2 ML VIAL IV SCH (10:12)
[2021-02-11] MEDS: FAMOTIDINE (10MG/ML) 2ML VL IV SCH ×2 (10:12→22:26)
[2021-02-11] MEDS: ASCORBIC ACID 1,000 MG TAB PO SCH (10:13)
[2021-02-11] MEDS: ENOXAPARIN SOD 40 MG/0.4 ML SYRINGE SC SCH ×2 (10:13→22:26)
[2021-02-11] MEDS: POTASSIUM CHL 20 Meq TABLET PO SCH (10:13)
[2021-02-11] MEDS: CHOLECALCIFEROL (VITD3) 2,000 UNIT CAP/TAB PO SCH (10:13)
[2021-02-11 13:00] VITALS: BP 117/71
[2021-02-11] MEDS: ERGOCALCIFEROL 50,000 UNIT(1.25MG) CAP PO SCH (15:24)
[2021-02-11 16:56] VITALS: BP 123/65
[2021-02-11 22:00] VITALS: BP 127/76
[2021-02-12] MEDS: DOXYCYCLINE 100MG/250ML 250 ML IV SCH ×2 (03:13→15:45)
[2021-02-12 05:00] VITALS: BP 117/64
[2021-02-12] MEDS: ALBUTEROL SULF HFA 90MCG INH 200DOSE IN PRN (06:53)
[2021-02-12] MEDS: BUDESONIDE (INHALATION) 180 MCG IH IN SCH (06:54)
[2021-02-12 08:52] VITALS: BP 130/73
[2021-02-12] MEDS: DexAMETHasone SOD PHOS 4 MG/1ML SDV INJ IV SCH (11:22)
[2021-02-12] MEDS: FAMOTIDINE (10MG/ML) 2ML VL IV SCH (11:25)
[2021-02-12] MEDS: FUROSEMIDE 20 MG/2 ML VIAL IV SCH (11:25)
[2021-02-12] MEDS: POTASSIUM CHL 20 Meq TABLET PO SCH (11:26)
[2021-02-12] MEDS: ZINC SULFATE 220mg CAP or TAB PO SCH (11:26)
[2021-02-12] MEDS: ENOXAPARIN SOD 40 MG/0.4 ML SYRINGE SC SCH (11:27)
[2021-02-12] MEDS: CHOLECALCIFEROL (VITD3) 2,000 UNIT CAP/TAB PO SCH (11:27)
[2021-02-12 13:00] VITALS: BP 119/77
[2021-02-12] MEDS ORDERED: ASPI1CHW15 PO (14:22)
[2021-02-12] MEDS ORDERED: ALBUAER3 IN (14:22)
[2021-02-12] MEDS ORDERED: ERGO1CAP23 PO (14:22)
[2021-02-12 17:00] VITALS: BP 123/76
[2021-02-12] MEDS: ASPirin 81 mg TAB PO SCH (17:00)
[2021-02-12] MEDS: ASCORBIC ACID 1,000 MG TAB PO SCH (17:00)
[2021-02-12 17:49] VITALS: BP 123/76
== END 2021-02-12 18:30 | disposition home or self-care (01) | DRG 871 ==
LOC: ER 14:11 → TELE 17:47 → TELE-EAST 20:51 → TELE-E-ADS 01-28 10:57 → ICU WEST 01-29 11:00 → TELE-EAST 02-02 13:34
PROVIDERS: ADMIT Hospitalist; ATTEND Internal Medicine
PROC: XW033E5 Introduction of Remdesivir Anti-infective into Peripheral Vein, Percutaneous Approach, New Technology Group 5 (ICD-10-PCS; principal; 2021-01-27)
PROC: 5A0945A Assistance with Respiratory Ventilation, 24-96 Consecutive Hours, High Flow/Velocity Cannula (ICD-10-PCS; 2021-01-28)
DX: A41.89 Other specified sepsis (principal); U07.1 COVID-19; J96.01 Acute respiratory failure with hypoxia; J12.82 Pneumonia due to coronavirus disease 2019; J44.0 Chronic obstructive pulmonary disease with (acute) lower respiratory infection; D68.59 Other primary thrombophilia; D89.834 Cytokine release syndrome, grade 4; E66.01 Morbid (severe) obesity due to excess calories; E11.9 Type 2 diabetes mellitus without complications; E55.9 Vitamin D deficiency, unspecified; E78.5 Hyperlipidemia, unspecified; E88.09 Other disorders of plasma-protein metabolism, not elsewhere classified; F17.200 Nicotine dependence, unspecified, uncomplicated; I25.10 Atherosclerotic heart disease of native coronary artery without angina pectoris; Z95.1 Presence of aortocoronary bypass graft; Z68.31 Body mass index [BMI] 31.0-31.9, adult
CPT/HCPCS: 36415; 36600; 71045; 80048; 80053; 80061; 80307; 81001; 82306; 82728; 82805; 83036; 83605; 83615; 83735; 83880; 84100; 84443; 84484; 84550; 85007; 85025; 85027; 85379; 85610; 85730; 86141; 87040; 87081; 87086; 87426; 93005; 93306; 94640; 96365; 97110; 97116; 97530; G0378; J0696; J1100; J2250; J3490; P9047